=== PATIENT | male | born 1975 | race Two or more races ===

== ENCOUNTER 2025-06-25 17:40 | Emergency (ER) | payer MEDICAID, SELFPAY ==
[2025-06-25 17:42] VITALS: BP 176/79; PULSE 94; RESP 18; TEMP 37; O2SAT 96; BMI 28.1
[2025-06-25 17:47] VITALS: PULSE 101; O2SAT 99
--- NOTE | 2025-06-25 18:15 | EKG_ITS ---
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
--- NOTE | 2025-06-25 18:15 | XR_ITS ---
Examination: AP chest single view Technique: Sitting AP portable chest single view Date and time: June 25, 2025, 1849 hrs., Comparison November 23, 2023 Indications: Chest pain today Findings: Normal heart size. No pneumonia or pulmonary edema. The osseous structures are intact Impression: No pneumonia or pulmonary edema
[2025-06-25 18:43] LABS: Basophils # (Auto) 0.0 Thou/mm3 (0.0-0.2); Basophils % (Auto) 0 % (0-2.5); Eosinophils # (Auto) 0.2 Thou/mm3 (0.0-0.5); Eosinophils % (Auto) 2 % (0-10); Hematocrit 41.7 % (41.0-53.0); Hemoglobin 15.1 g/dL (13.5-16.0); Immature Granulocytes Auto 0.04 Thou/mm3 (0.00-0.00); Lymphocytes # (Auto) 2.1 Thou/mm3 (1.0-4.8); Lymphocytes % (Auto) 31 % (10-50); Mean Corpuscular HGB Conc 36.2 g/dl (31.0-37.0); Mean Corpuscular Hemoglobin 33.8 pg (25.0-35.0); Mean Corpuscular Volume 93 fL (80-100); Monocytes # (Auto) 0.6 Thou/mm3 (0.0-0.8); Monocytes % (Auto) 9 % (0-12); Neutrophils # (Auto) 3.9 Thou/mm3 (1.8-7.7); Neutrophils % (Auto) 57 % (37-80); Nucleated Red Blood Cell # 0.00 Thou/mm3 (0.00-0.00); Nucleated Red Blood Cell % 0 /100 WBC (0); Platelet Count 233 Thou/mm3 (140-440); RDW Standard Deviation 42.2 fL (35.1-43.9); Red Blood Count 4.47 Miln/mm3 (4.50-5.90); White Blood Count 6.9 Thou/mm3 (3.8-10.6)
[2025-06-25 19:03] LABS: B-Type Natriuretic Peptide 24 pg/mL (0-100)
[2025-06-25 19:04] LABS: Alanine Aminotransferase 85 U/L (10-49); Albumin, Serum 4.7 gm/dL (3.5-5.0); Albumin/Globulin Ratio 2.0 (1.2-2.2); Alkaline Phosphatase 139 U/L (46-116); Anion Gap 20 (7-16); Aspartate Amino Transferase 149 U/L (0-34); BUN/Creatinine Ratio 9 Ratio (12-20); Bilirubin,Total 1.3 mg/dL (0.3-1.2); Blood Urea Nitrogen 7 mg/dL (9-23); Calcium 9.9 mg/dL (8.3-10.6); Calcium (Corrected) 9.9 mg/dL (8.5-10.1); Carbon Dioxide 17.5 mMol/L (20.0-31.0); Chloride 101 mMol/L (98-107); Creatinine (Component) 0.8 mg/dL (0.6-1.3); Estimated Creatinine Clearance 115.3 mL/min (>60); Globulin 2.3 gm/dL (2.3-3.5); Glucose 128 mg/dL (74-106); Osmolality,Calculated 275 (275-295); Potassium 2.9 mMol/L (3.4-5.1); Sodium 138 mMol/L (136-145); Total Protein 7.0 gm/dL (5.7-8.2); Troponin I < 0.020 ng/mL (0.0-0.045); eGFR > 60 See Note
[2025-06-25] MEDS: POTASSIUM CHL 10 mEq IVPB 10 MEQ/100 ML BAG 100 MEQ IV ×2 (20:15→21:10)
[2025-06-25 22:06] VITALS: BP 160/84; PULSE 67; RESP 16; O2SAT 96
--- NOTE | 2025-06-25 22:11 | PD.EDCHEST ---
ED Chest Pain RME/HPI General Chief Complaint: General Adult/Misc Complain Stated Complaint: ANXIETY ATTACK TODAY, B/P HIGH Time Seen by Provider: 06/25/25 18:05 Arrival date/time: 06/25/25 17:40 This is a case of 49-year-old male with history of anxiety came in in the emergency room due to left anterior chest pain today with tingling sensation on the left arm no shortness of breath no palpitation patient states that her blood pressure at home was high patient denies any headache nausea vomiting dizziness numbness weakness tingling sensation no shortness of breath persistence of the symptoms this patient decided to sought consult here in the emergency room Limitations: no limitations Related Data Previous Rx's ?Medication ?Instructions ?Recorded ondansetron 4 mg disintegrating 4 mg PO Q8H PRN nausea and 03/09/24 tablet vomiting #14 tabs hydroxyzine HCl 25 mg tablet 25 mg PO BID PRN anxiety #10 tabs 06/25/25 potassium chloride 20 mEq 20 meq PO QDAY 3 days #3 tabs 06/25/25 tablet,extended release Allergies Allergy/AdvReac Type Severity Reaction Status Date / Time No Known Allergies Allergy Verified 06/25/25 17:50 Review of Systems Review of Systems Systems Reviewed: All systems reviewed, normal except as documented Constitutional Constitutional: Reports system reviewed and no additional complaints, except as documented, Reports as per HPI and Denies headache(s) ENT Ears, Nose, Mouth, and Throat: Denies dizziness, Denies headache(s) and Denies vertigo Cardiovascular Cardiovascular: Reports system reviewed and no additional complaints, except as documented, Reports as per HPI, Reports chest pain, Denies dyspnea and Denies rapid heart rate Respiratory Respiratory: Reports system reviewed and no additional complaints, except as documented, Reports as per HPI and Denies dyspnea Gastrointestinal Gastrointestinal: Reports system reviewed and no additional complaints, except as documented, Reports as per HPI, Denies nausea and Denies vomiting Musculoskeletal Musculoskeletal: Reports system reviewed and no additional complaints, except as documented, Reports as per HPI and Denies numbness Neurologic Neurologic: Reports system reviewed and no additional complaints, except as documented, Reports as per HPI, Denies dizziness, Denies headache(s), Denies numbness, Denies seizure-like activity, Denies sensory deficit and Denies vertigo Past Medical History Past Medical History CARDIAC: Positive Hypertension; Negative Congestive Heart Failure RESPIRATORY: Negative Chronic Obstructive Pulmonary Disease (COPD) GENITOURINARY: Negative Renal Disease ENDOCRINE: Negative Diabetes Mellitus Type 1 or Diabetes Mellitus Type 2 Social History SMOKING STATUS: Never smoker SUBSTANCE USE: methamphetamine (2 days ago) ED Exam General Limitations: Present no limitations General appearance: Present alert, in no apparent distress and other (Physical examination patient is awake alert oriented not in distress nontoxic looking well-hydrated well-nourished) Head Head exam: Present atraumatic, normocephalic and normal inspection Eye Eye exam: Present normal appearance, PERRL, EOMI and other (PERRL EOM intact normal contact, no papilledema no hyphema) ENT ENT exam: Present normal exam, normal oropharynx and mucous membranes moist Neck Neck exam: Present normal inspection, full ROM, trachea midline and other (Negative for meningeal sign); Absent tenderness, meningismus, lymphadenopathy or thyromegaly Chest Chest inspection: Present normal inspection and symmetric chest wall rise; Absent tenderness Respiratory Respiratory exam: Present normal lung sounds bilaterally; Absent respiratory distress, wheezes, stridor, accessory muscle use or prolonged expiratory phase Cardiovascular Cardiovascular exam: Present regular rate, normal rhythm and normal heart sounds; Absent bradycardia, tachycardia, irregular rhythm, systolic murmur or diastolic murmur Abdominal Exam Abdominal exam: Present soft and normal bowel sounds; Absent distention, tenderness, guarding, rebound, rigidity, diminished bowel sounds, hyperactive bowel sounds, hypoactive bowel sounds or organomegaly Extremities Exam Extremities exam: Present normal inspection and full ROM Back Exam Back exam: Present normal inspection and full ROM Neurological Exam Neurological exam: Present alert, oriented X3, CN II-XII intact, normal gait, reflexes normal and other (Awake alert oriented x 4 no focal deficit GCS 15/15 steady gait memory intact no slurring speech no facial droop CN II to XII is normal motor or sensory reflex are all normal in all extremities negative Babinski); Absent motor sensory deficit Psychiatric Psychiatric exam: Present normal affect, normal mood, anxious and other (No hallucination no paranoia no delusion); Absent depressed, agitated, flat affect, manic, homicidal ideation or suicidal ideation Skin Skin exam: Present warm, dry, intact and normal color Course Quality Measures none Orders Category Date Time Status EKG (ED ONLY) *Do not use* NOW Care 06/25/25 18:15 Completed EKG (ED Only) Stat Exams 06/25/25 18:15 Draft XR chest 1V portable Stat Exams 06/25/25 18:15 Completed BNP [B-Type Natriuretic Peptide] Stat Lab 06/25/25 18:27 Completed CBC Stat Lab 06/25/25 18:27 Completed CMP [Comprehensive Metabolic Panel] Stat Lab 06/25/25 18:27 Completed Troponin I Stat Lab 06/25/25 18:27 Completed LORazepam [Ativan] Med 06/25/25 18:15 Discontinued 1 mg PO X1 ONE POTASSIUM CHL 10 mEq IVPB [Kcl Ivpb] Med 06/25/25 19:12 Discontinued 10 meq in 100 ml IV Q1H Potassium Chloride [K-Dur] Med 06/25/25 19:11 Discontinued 40 meq PO X1 ONE Vital Signs Vital signs: Vital Signs Temperature 98.6 F 06/25/25 17:42 Pulse Rate 94 06/25/25 17:42 Respiratory Rate 18 06/25/25 17:42 Blood Pressure 176/79 H 06/25/25 17:42 Pulse Oximetry (%) 96 06/25/25 17:42 Oxygen Delivery Method Room Air 06/25/25 17:42 Patient oxygen saturation is 96% in room air Chest Pain MDM Narrative MDM Narrative:: This is a case of 49-year-old male with history of anxiety came in in the emergency room due to left anterior chest pain today with tingling sensation on the left arm no shortness of breath no palpitation patient states that her blood pressure at home was high patient denies any headache nausea vomiting dizziness numbness weakness tingling sensation no shortness of breath persistence of the symptoms this patient decided to sought consult here in the emergency room physical examination patient is awake alert oriented not in distress nontoxic looking well-hydrated well-nourished vital signs stable BP is noted to be 176/79 after giving Ativan BP was rechecked and noted to be 135/75 patient is not tachycardic heart rate is 94 not tachypneic not hypoxic oxygen saturation is normal in room air patient neurological exam is normal awake alert oriented x 4 no focal deficit GCS 15/15 steady gait no facial droop no slurring with speech memory intact motor or sensory reflex were all normal in all extremities CN II through XII is normal negative Babinski lungs sound is clear no crackles no rales no retraction no stridor heart normal rate regular rhythm no murmur the rest of the physical examination neurological exam is normal and unremarkable mental exam noted to be mildly anxious but no suicidal no homicidal ideation no hallucination no paranoia no delusion based on my physical examination patient chest pain is possible anxiety thus I gave Ativan patient blood test showed no leukocytosis no anemia kidney and liver function is normal patient sodium is normal patient potassium is 2.9 patient was given a K rider 20 mEq plus K-Dur 40 mEq oral patient urinalysis is normal patient troponin is negative patient EKG is sinus tach at 110 possibly due to anxiety no Q waves no ST elevation abnormality chest x-ray is also normal after 1 hour patient was reassessed patient seems to be calm not in distress nontoxic looking BP stable heart rate noted to be ranging to 95-99 normal patient will follow-up with PCP in 2 days for reevaluation and to be referred to field technician for chest pain for possible echocardiogram stress test and Holter monitor patient will follow-up with PCP to monitor the potassium level as an outpatient and repeat level in 2 days for reevaluation patient was prescribed with K-Dur 20 mEq only for 3 days until seen by PCP patient was also given hydroxyzine for anxiety patient needs to be referred to psychiatry and psychologist for anxiety for any recurrence persistent worsening symptoms return precaution to the ER is advised Patient was discharged with comfortable condition walking with stable gait. Patient verbalized no further complains explained diagnosis and answered patient question. Patient is comfortable with the proposed management plan including the need to follow up with his/her primary care physician and any specialist if applicable Discussed patient for any urgent condition or worsening sx, He/She needed to go to emergency room immediately or call 911. Patient acknowledge the responsibility to follow up as instructed and to monitor her/his symptoms. For any persistence of the symptoms for more than 3-5 days return precaution advised. Discussed the result of the test and was given printed discharge instruction Patient data External records reviewed:: [facility] previous records Clinical information provided by:: patient Social determinants that could affect healthcare access:: none Patient has the following chronic illnesses:: None How is presenting disease/condition affected by chronic disease/condition?: no chronic disease Evaluation data The following diagnostics were reviewed and interpreted by me:: lab results, radiology exam(s) and EKG tracing(s) Lab and/or radiology exams considered but not ordered:: Reviewed Interpretation Summary: Reviewed Medications / Prescriptions Medications or Prescriptions considered but not ordered:: Given Medication administrations:: Medication Administration History Discontinued Medications Potassium Chloride (Kcl Ivpb) 10 meq in 100 mls @ 100 mls/hr IV Q1H JIM Stop: 06/25/25 21:11 Last Admin: 06/25/25 21:10 Dose: 100 mls/hr Documented By: Infusion: 06/25/25 21:10 Dose: Infused Documented By: Admin: 06/25/25 20:15 Dose: 100 mls/hr Documented By: TEE Lorazepam (Lorazepam 0.5 Mg Tablet) 1 mg PO X1 ONE Stop: 06/25/25 18:16 Last Admin: 06/25/25 19:24 Dose: 1 mg Documented By: SHIRA Potassium Chloride (Potassium Chloride 20 Meq Tabcr) 40 meq PO X1 ONE Stop: 06/25/25 19:12 Last Admin: 06/25/25 19:41 Dose: 40 meq Documented By: TEE Given Consultations Consultation(s) initiated? (list below): No Diagnosis Chest Pain Differential Diagnosis: atypical chest pain, costochondritis and chest pain Most likely diagnosis given after review of the tests above:: Chest pain of unknown etiology anxiety Admission Indicated Admission indicated?: not indicated Explain why admission is indicated or not indicated:: Not indicated Admission Request Was there a request for admission?: No Admission Attestation Admission request attestation: Not indicated Disposition Plan Disposition Plan: Discharge Discharge Attestation Discharge Attestation: The patient and all family members were given an opportunity to ask questions and understood the discharge instructions. Discharge instructions specifically effects, indications for sooner follow up or return to the emergency department, and the expected course of current diagnosis. Patient condition: Stable Discharge Plan Plan Patient Disposition: HOME (Self Care) Patient condition on transfer: Stable Prescriptions/Referrals Prescriptions/Med Rec: New hydroxyzine HCl 25 mg tablet 25 mg PO BID PRN (Reason: anxiety) Qty: 10 0RF potassium chloride 20 mEq tablet extended release 20 meq PO QDAY 3 Days Qty: 3 0RF No Action ondansetron 4 mg tablet,disintegrating 4 mg PO Q8H PRN (Reason: nausea and vomiting) Qty: 14 0RF Referrals: No Primary/Family,Physician [Primary Care Provider] - In 1 week Problem List Clinical Impression: Chest pain of unknown etiology, Anxiety, Hypokalemia Patient/Caregiver Discharge Instructions Education Materials: ED Anxiety Reaction, ED Chest Pain, Uncertain Cause, ED Hypokalemia Additional Instructions: Follow-up with your primary care physician in 2 days for reevaluation and to be referred to field technician for further evaluation and treatment of chest pain for possible echocardiogram stress test and Holter monitor it is also important to see a psychiatrist psychologist for your anxiety you also need to follow-up with your primary care physician to monitor your potassium level as an outpatient and to repeat the level in 2 days worsening symptoms recurrence persistent or any emergent concern call 911 or go to the nearest emergency room take your medication as directed keep hydrated Print Language: Czech Stand Alone Forms: Sara Award Info., Patient Portal Info Letter PA/BLOW MACHINE TENDER STARCH SPRAYING Supervising Physician PA/AXEL Supervising Physician: dr janelle shaikh
[2025-06-25 22:37] VITALS: BP 151/86; PULSE 65; RESP 16; O2SAT 98
== END 2025-06-25 22:54 | disposition home or self-care (01) ==
PROVIDERS: Nurse Practitioner Family; Emergency Provider Emergency Medicine
DX: R07.89 Other chest pain (principal); F41.9 Anxiety disorder, unspecified; E87.6 Hypokalemia; R00.0 Tachycardia, unspecified; R94.31 Abnormal electrocardiogram [ECG] [EKG]; I10 Essential (primary) hypertension
CPT/HCPCS: 36415; 71045; 80053; 83880; 84132; 84484; 85025; 93005; 99283; J3480; A9270

== ENCOUNTER 2025-06-28 07:00 | Emergency (ER) | payer MEDICAID, SELFPAY ==
[2025-06-28 07:00] VITALS: BMI 29.0
[2025-06-28 07:09] VITALS: BP 163/90; PULSE 78; RESP 19; TEMP 37.1; O2SAT 98
--- NOTE | 2025-06-28 07:17 | XR_ITS ---
Examination: PA lateral chest 2 views Technique: Upright PA lateral chest 2 views Date and time: June 28, 2025, 0729 hrs., Comparison June 25, 2025 Indications: Chest pain chest pressure and weakness today Findings: Normal heart size. Lungs are clear. The osseous structures are intact. Impression: No active disease.
--- NOTE | 2025-06-28 07:17 | EKG_ITS ---
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
[2025-06-28 07:54] LABS: Collection Type, Urine Clean Catch
[2025-06-28 08:12] LABS: Amphetamine/Methamp Scrn,U Negative (Negative); Barbiturate Screen,Urine Negative (Negative); Benzodiazepines Screen,Urine Negative (Negative); Benzoylecgonine Screen, Ur Positive (Negative); Fentanyl Screen,Urine Negative (Negative); Opiate Screen,Urine Negative (Negative); THC Screen,Urine Negative (Negative)
[2025-06-28 08:26] LABS: Bilirubin,Urine Negative (Negative); Blood,Urine Negative (Negative); Clarity,Urine Clear (Clear/Hazy); Color,Urine Yellow (Lt Yel-Yel); Culture Indicated,Urine Not Indicated; Glucose, Urine Negative (Negative); Ketones,Urine Negative (Negative); Leukocyte Esterase,Urine Negative (Negative); Nitrite,Urine Negative (Negative); PH,Urine 6.5 (5.0-7.0); Protein,Urine Trace (Neg - Trace); RBC,Urine 6 /hpf (0-3); Specific Gravity,Urine 1.031 (1.001-1.035); Squamous Epithelial Cell,Urine < 1 /hpf (0-5); Urobilinogen,Urine 12 mg/dL (0.0-1.0); WBC,Urine 2 /hpf (0-5)
[2025-06-28 08:27] LABS: Basophils # (Auto) 0.0 Thou/mm3 (0.0-0.2); Basophils % (Auto) 0 % (0-2.5); Eosinophils # (Auto) 0.0 Thou/mm3 (0.0-0.5); Eosinophils % (Auto) 0 % (0-10); Hematocrit 40.1 % (41.0-53.0); Hemoglobin 13.8 g/dL (13.5-16.0); Immature Granulocytes Auto 0.00 Thou/mm3 (0.00-0.00); Lymphocytes # (Auto) 0.5 Thou/mm3 (1.0-4.8); Lymphocytes % (Auto) 11 % (10-50); Mean Corpuscular HGB Conc 34.4 g/dl (31.0-37.0); Mean Corpuscular Hemoglobin 33.1 pg (25.0-35.0); Mean Corpuscular Volume 96 fL (80-100); Monocytes # (Auto) 0.4 Thou/mm3 (0.0-0.8); Monocytes % (Auto) 8 % (0-12); Neutrophils # (Auto) 3.8 Thou/mm3 (1.8-7.7); Neutrophils % (Auto) 81 % (37-80); Nucleated Red Blood Cell # 0.00 Thou/mm3 (0.00-0.00); Nucleated Red Blood Cell % 0 /100 WBC (0); Platelet Count 155 Thou/mm3 (140-440); RDW Standard Deviation 44.1 fL (35.1-43.9); Red Blood Count 4.17 Miln/mm3 (4.50-5.90); White Blood Count 4.8 Thou/mm3 (3.8-10.6)
[2025-06-28 08:41] LABS: Sperm,Urine Present
[2025-06-28 08:42] LABS: D-Dimer < 250 ng/mL (<600)
[2025-06-28 08:49] LABS: Alanine Aminotransferase 72 U/L (10-49); Albumin, Serum 4.2 gm/dL (3.5-5.0); Albumin/Globulin Ratio 1.9 (1.2-2.2); Alkaline Phosphatase 108 U/L (46-116); Anion Gap 8 (7-16); Aspartate Amino Transferase 119 U/L (0-34); BUN/Creatinine Ratio 10 Ratio (12-20); Bilirubin,Total 1.0 mg/dL (0.3-1.2); Blood Urea Nitrogen 8 mg/dL (9-23); Calcium 9.2 mg/dL (8.3-10.6); Calcium (Corrected) 9.2 mg/dL (8.5-10.1); Carbon Dioxide 26.1 mMol/L (20.0-31.0); Chloride 107 mMol/L (98-107); Creatinine (Component) 0.8 mg/dL (0.6-1.3); Estimated Creatinine Clearance 109.6 mL/min (>60); Globulin 2.2 gm/dL (2.3-3.5); Glucose 107 mg/dL (74-106); Magnesium 1.7 mg/dL (1.6-2.6); Osmolality,Calculated 279 (275-295); Potassium 4.1 mMol/L (3.4-5.1); Sodium 141 mMol/L (136-145); Total Protein 6.4 gm/dL (5.7-8.2); Troponin I < 0.002 ng/mL (0.0-0.045); eGFR > 60 See Note
[2025-06-28 08:55] LABS: B-Type Natriuretic Peptide 42 pg/mL (0-100)
--- NOTE | 2025-06-28 09:14 | EDNOTE_ITS ---
ED General RME/HPI General Chief complaint: General Adult/Misc Complain Stated complaint: REACTION TO MEDICATION Time Seen by Provider: 06/28/25 08:18 Arrival date/time: 06/28/25 07:00 49-year-old male with history of anxiety and cocaine abuse presents to the emergency department today stating that he believes he is having anxiety reaction/reaction to medication Limitations: no limitations Related Data Previous Rx's ?Medication ?Instructions ?Recorded ondansetron 4 mg disintegrating 4 mg PO Q8H PRN nausea and 03/09/24 tablet vomiting #14 tabs hydroxyzine HCl 25 mg tablet 25 mg PO BID PRN anxiety #10 tabs 06/25/25 hydrochlorothiazide 12.5 mg capsule 12.5 mg PO QAM #30 caps 07/01/25 Allergies Allergy/AdvReac Type Severity Reaction Status Date / Time No Known Allergies Allergy Verified 07/03/25 05:41 Review of Systems Review of Systems Systems Reviewed: All systems reviewed, normal except as documented Constitutional Constitutional: Reports system reviewed and no additional complaints, except as documented, Denies fever(s) and Denies headache(s) Eyes Eyes: Reports system reviewed and no additional complaints, except as documented and Denies blurry vision ENT Ears, Nose, Mouth, and Throat: Reports system reviewed and no additional complaints, except as documented, Denies headache(s), Denies nasal congestion and Denies nasal discharge Cardiovascular Cardiovascular: Reports system reviewed and no additional complaints, except as documented, Denies chest pain and Denies dyspnea Respiratory Respiratory: Reports system reviewed and no additional complaints, except as documented, Denies chest congestion, Denies cough and Denies dyspnea Gastrointestinal Gastrointestinal: Reports system reviewed and no additional complaints, except as documented and Denies abdominal pain Integumentary/Breasts Skin/Breast: Reports system reviewed and no additional complaints, except as documented and Denies rash Neurologic Neurologic: Reports system reviewed and no additional complaints, except as documented, Reports as per HPI and Denies headache(s) Psychiatric Psychiatric: Reports system reviewed and no additional complaints, except as documented and Reports anxiety Past Medical History Past Medical History CARDIAC: Positive Hypertension; Negative Congestive Heart Failure RESPIRATORY: Negative Chronic Obstructive Pulmonary Disease (COPD) GENITOURINARY: Negative Renal Disease ENDOCRINE: Negative Diabetes Mellitus Type 1 or Diabetes Mellitus Type 2 PSYCHO/SOCIAL: Positive Anxiety Social History SMOKING STATUS: Never smoker SUBSTANCE USE: methamphetamine (2 days ago) ED Exam General Limitations: Present no limitations General appearance: Present alert and in no apparent distress Head Head exam: Present atraumatic, normocephalic and normal inspection Eye Eye exam: Present normal appearance, PERRL and EOMI; Absent conjunctival injection ENT ENT exam: Present normal exam, normal oropharynx and mucous membranes moist Neck Neck exam: Present normal inspection, full ROM and trachea midline Chest Chest inspection: Present normal inspection and symmetric chest wall rise Respiratory Respiratory exam: Present normal lung sounds bilaterally; Absent respiratory distress Cardiovascular Cardiovascular exam: Present regular rate, normal rhythm and normal heart sounds; Absent bradycardia or irregular rhythm Abdominal Exam Abdominal exam: Present soft and normal bowel sounds; Absent distention, tenderness, guarding, rebound or rigidity Extremities Exam Extremities exam: Present normal inspection and full ROM Back Exam Back exam: Present normal inspection and full ROM Neurological Exam Neurological exam: Present alert, oriented X3 and CN II-XII intact Psychiatric Psychiatric exam: Present normal affect and normal mood Skin Skin exam: Present warm, dry, intact and normal color Course Quality Measures none Orders Category Date Time Status EKG (ED ONLY) *Do not use* NOW Care 06/28/25 07:17 Completed EKG (ED Only) Stat Exams 06/28/25 07:17 Draft XR chest 2V Stat Exams 06/28/25 07:17 Completed B-Type Natriuretic Peptide Stat Lab 06/28/25 08:00 Completed CBC Stat Lab 06/28/25 08:00 Completed Comprehensive Metabolic Panel Stat Lab 06/28/25 08:00 Completed D-Dimer Stat Lab 06/28/25 08:00 Completed Drug Screen,Urine Stat Lab 06/28/25 07:38 Completed Magnesium Stat Lab 06/28/25 08:00 Completed Troponin I Stat Lab 06/28/25 08:00 Completed Urinalysis, C/S if Indicated Stat Lab 06/28/25 07:38 Completed ALPRazoLAM [Xanax] Med 06/28/25 07:17 Discontinued 0.25 mg PO X1 ONE Vital Signs Vital signs: Vital Signs Temperature 98.8 F 06/28/25 07:09 Pulse Rate 78 06/28/25 07:09 Respiratory Rate 19 06/28/25 07:09 Blood Pressure 163/90 H 06/28/25 07:09 Pulse Oximetry (%) 98 06/28/25 07:09 Oxygen Delivery Method Room Air 06/28/25 07:09 O2 saturation 98% room air within normal limits PROCEDURES: EKG Interpretation #1: Date of EK06/28/25 Time of EK:20 Rate: 71 Interpretation: Interpreted by me EKG Impression: Normal sinus rhythm, No acute ST-T changes, No ectopy, No ischemic changes, Normal QRS, Normal intervals and Normal axis Discharge Plan Plan Patient Disposition: HOME (Self Care) Discharge Disposition comment: Stable Prescriptions/Referrals Prescriptions/Med Rec: No Action ondansetron 4 mg tablet,disintegrating 4 mg PO Q8H PRN (Reason: nausea and vomiting) Qty: 14 0RF hydroxyzine HCl 25 mg tablet 25 mg PO BID PRN (Reason: anxiety) Qty: 10 0RF hydrochlorothiazide 12.5 mg capsule 12.5 mg PO QAM Qty: 30 0RF Referrals: No Primary/Family,Physician [Primary Care Provider] - 06/29/25 Problem List Clinical Impression: Anxiety Patient/Caregiver Discharge Instructions Education Materials: ED Anxiety Reaction Additional Instructions: Please follow up with your primary care doctor in the next 24-48hrs for any worsening symptoms return here immediately Print Language: Kyrgyz Stand Alone Forms: Sara Award Info., Patient Portal Info Letter PA/BURIAL VAULT DELIVERER AND INSTALLER Supervising Physician PA/BURIAL VAULT DELIVERER AND INSTALLER Supervising Physician: Dr. terrazas MDM Narrative MDM hospital course (for use when minimal MDM required): 49-year-old male with history of anxiety and cocaine abuse presents to the emergency department today stating that he believes he is having anxiety reaction/reaction to medication On exam patient appears quite nervous Lab work, EKG, imaging obtained no acute emergent findings noted Patient did test positive for cocaine Patient give medication for anxiety discharged home Clinical Information Provided by: patient Medical Records reviewed [facility] Meds/Rx considered, not ordered describe: Given Labs/Rad/Tests considered, not ordered Describe: Reviewed Chronic Illness/Social Conditions which may negatively complicate care or outcome(s)-explain: None or not applicab le Labs Labs: interpreted by me Lab(s) Interpretation(s): Rule out me Imaging Imaging interpretation: interpreted by me Imaging Interpretation(s): Ordered Medication Administration(s) Medication Administration History Discontinued Medications Alprazolam (Alprazolam 0.25 Mg Tablet) 0.25 mg PO X1 ONE Stop: 06/28/25 07:18 Last Admin: 06/28/25 07:36 Dose: 0.25 mg Documented By: LEROY Given Diagnosis Differential Diagnosis ED Complaint MDM: Anxiety, depression, stress, drug abuse
== END 2025-06-28 09:46 | disposition home or self-care (01) ==
PROVIDERS: Nurse Practitioner Primary Care; Emergency Provider Family Medicine
DX: F41.1 Generalized anxiety disorder (principal); R07.89 Other chest pain; R53.1 Weakness; R94.31 Abnormal electrocardiogram [ECG] [EKG]; I10 Essential (primary) hypertension
CPT/HCPCS: 36415; 71046; 80053; 80307; 81001; 83735; 83880; 84484; 85025; 85379; 93005; 99283; A9270

== ENCOUNTER 2025-07-01 12:09 | Emergency (ER) | payer MEDICAID, SELFPAY ==
[2025-07-01 12:10] VITALS: BMI 27.3
[2025-07-01 12:17] VITALS: BP 159/96; PULSE 97; RESP 18; TEMP 37; O2SAT 97
--- NOTE | 2025-07-01 12:20 | EDRME_ITS ---
Rapid Medical Screening Exam RME Arrival date/time: 07/01/25 12:09 Chief Complaint: Anxiety Vital signs: Vital Signs Temperature 98.6 F 07/01/25 12:17 Pulse Rate 97 07/01/25 12:17 Respiratory Rate 18 07/01/25 12:17 Blood Pressure 159/96 H 07/01/25 12:17 Pulse Oximetry (%) 97 07/01/25 12:17 Oxygen Delivery Method Room Air 07/01/25 12:17 RME Narrative: Patient c/o bilateral hand numbness and anxiety. This is patient's third visit this week for anxiety attack. No anxiolytics taken relief captain.
--- NOTE | 2025-07-01 12:22 | EKG_ITS ---
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
[2025-07-01 13:05] LABS: Basophils # (Auto) 0.0 Thou/mm3 (0.0-0.2); Basophils % (Auto) 0 % (0-2.5); Eosinophils # (Auto) 0.0 Thou/mm3 (0.0-0.5); Eosinophils % (Auto) 0 % (0-10); Hematocrit 45.7 % (41.0-53.0); Hemoglobin 15.7 g/dL (13.5-16.0); Immature Granulocytes Auto 0.03 Thou/mm3 (0.00-0.00); Lymphocytes # (Auto) 1.6 Thou/mm3 (1.0-4.8); Lymphocytes % (Auto) 26 % (10-50); Mean Corpuscular HGB Conc 34.4 g/dl (31.0-37.0); Mean Corpuscular Hemoglobin 32.4 pg (25.0-35.0); Mean Corpuscular Volume 94 fL (80-100); Monocytes # (Auto) 0.4 Thou/mm3 (0.0-0.8); Monocytes % (Auto) 7 % (0-12); Neutrophils # (Auto) 4.0 Thou/mm3 (1.8-7.7); Neutrophils % (Auto) 66 % (37-80); Nucleated Red Blood Cell # 0.00 Thou/mm3 (0.00-0.00); Nucleated Red Blood Cell % 0 /100 WBC (0); Platelet Count 192 Thou/mm3 (140-440); RDW Standard Deviation 42.5 fL (35.1-43.9); Red Blood Count 4.85 Miln/mm3 (4.50-5.90); White Blood Count 6.1 Thou/mm3 (3.8-10.6)
[2025-07-01 13:20] LABS: Alanine Aminotransferase 70 U/L (10-49); Albumin, Serum 5.0 gm/dL (3.5-5.0); Albumin/Globulin Ratio 1.9 (1.2-2.2); Alcohol, Blood Medical < 3.0 mg/dL (0-10.0); Alkaline Phosphatase 97 U/L (46-116); Anion Gap 13 (7-16); Aspartate Amino Transferase 70 U/L (0-34); BUN/Creatinine Ratio 10 Ratio (12-20); Bilirubin,Total 1.2 mg/dL (0.3-1.2); Blood Urea Nitrogen 8 mg/dL (9-23); Calcium 10.2 mg/dL (8.3-10.6); Calcium (Corrected) 10.2 mg/dL (8.5-10.1); Carbon Dioxide 22.9 mMol/L (20.0-31.0); Chloride 103 mMol/L (98-107); Creatinine (Component) 0.8 mg/dL (0.6-1.3); Estimated Creatinine Clearance 105.7 mL/min (>60); Globulin 2.6 gm/dL (2.3-3.5); Glucose 114 mg/dL (74-106); Osmolality,Calculated 276 (275-295); Potassium 3.8 mMol/L (3.4-5.1); Sodium 139 mMol/L (136-145); Total Protein 7.6 gm/dL (5.7-8.2); eGFR > 60 See Note
--- NOTE | 2025-07-01 13:37 | EDNOTE_ITS ---
ED General RME/HPI General Chief complaint: Anxiety Stated complaint: ANXIETY ATTACKED TODAY Time Seen by Provider: 07/01/25 12:36 Arrival date/time: 07/01/25 12:09 CC: No woke up this morning with a high blood pressure patient does not see any regular doctor, has no medications other than hydroxyzine for anxiety. at bedside states the patient has been anxious for the past morning. Patient denies nausea vomiting chest pain shortness of breath or difficulty breathing. At the time of the exam all the symptoms had resolved. RME / HPI RME / HPI narrative: Patient c/o bilateral hand numbness and anxiety. This is patient's third visit this week for anxiety attack. 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 Related Data Previous Rx's ?Medication ?Instructions ?Recorded ondansetron 4 mg disintegrating 4 mg PO Q8H PRN nausea and 03/09/24 tablet vomiting #14 tabs hydroxyzine HCl 25 mg tablet 25 mg PO BID PRN anxiety #10 tabs 06/25/25 hydrochlorothiazide 12.5 mg capsule 12.5 mg PO QAM #30 caps 07/01/25 Allergies Allergy/AdvReac Type Severity Reaction Status Date / Time No Known Allergies Allergy Verified 06/25/25 17:50 Review of Systems Review of Systems Narrative Review of Systems: GEN: No fever, no chills, no weight loss EYES: No discharge, no visual changes, no pain HEENT: No ear pain, no congestion, no sore throat PULM: No shortness of breath, no cough, no congestion CV: No chest pain, no dyspnea on exertion, no palpitations GI: No nausea, no vomiting, no diarrhea, no pain, no constipation : No frequency, no urgency, no dysuria MUSC/SKEL: No joint pain, no back pain SKIN: No rash PSYCH: No hallucinations, no depression HEME/LYMPH: No easy bleeding or bruising tendencies NEURO: No weakness, no headache Past Medical History Past Medical History CARDIAC: Positive Hypertension; Negative Congestive Heart Failure RESPIRATORY: Negative Chronic Obstructive Pulmonary Disease (COPD) GENITOURINARY: Negative Renal Disease ENDOCRINE: Negative Diabetes Mellitus Type 1 or Diabetes Mellitus Type 2 Social History SMOKING STATUS: Never smoker SUBSTANCE USE: methamphetamine (2 days ago) ED Exam Narrative Physical exam: [General: Anxious but not in any acute distress Head normocephalic HEENT: Eyes pupils are PERRLA EOMs are intact mouth pink moist membranes uvula is midline swallow symmetrical phonation is normal all the subsystems of HEENT are within acceptable limits Neck is supple nontender Chest equal chest rise nontender to palpation Respiratory: Clear to auscultation no wheezes crackles or rubs CV: Rate rhythm is regular no murmurs rubs or clicks Abdomen is soft nontender no masses positive bowel sounds all 4 quadrants Back: No CVA tenderness no spinous process tenderness from cervical spine thoracic and lumbar spine Skin: Intact no petechiae rash induration ulceration or crepitus Extremities: Moving all extremity against resistance cap refill less than 2 seconds neurosensory intact Neuro: Awake alert oriented x3 Glascow coma 15 no focal deficits] Course Quality Measures none Orders Category Date Time Status EKG (ED ONLY) *Do not use* NOW Care 07/01/25 12:22 Completed EKG (ED Only) Stat Exams 07/01/25 12:22 Draft Alcohol, Blood Medical Stat Lab 07/01/25 12:37 Completed CBC Stat Lab 07/01/25 12:37 Completed CMP [Comprehensive Metabolic Panel] Stat Lab 07/01/25 12:37 Completed Drug Screen,Urine Stat Lab 07/01/25 12:22 Ordered UA [Urinalysis] Stat Lab 07/01/25 12:21 Ordered LORazepam [Ativan] Med 07/01/25 12:21 Discontinued 2 mg PO X1 ONE Vital Signs Vital signs: Vital Signs Temperature 98.6 F 07/01/25 12:17 Pulse Rate 97 07/01/25 12:17 Respiratory Rate 18 07/01/25 12:17 Blood Pressure 159/96 H 07/01/25 12:17 Pulse Oximetry (%) 97 07/01/25 12:17 Oxygen Delivery Method Room Air 07/01/25 12:17 Discharge Plan Plan Patient Disposition: HOME (Self Care) Patient condition on transfer: Stable Prescriptions/Referrals Prescriptions/Med Rec: New hydrochlorothiazide 12.5 mg capsule 12.5 mg PO QAM Qty: 30 0RF No Action ondansetron 4 mg tablet,disintegrating 4 mg PO Q8H PRN (Reason: nausea and vomiting) Qty: 14 0RF hydroxyzine HCl 25 mg tablet 25 mg PO BID PRN (Reason: anxiety) Qty: 10 0RF Referrals: Devin Smith MD [Primary Care Provider, Family Practice] - In 1 week Problem List Clinical Impression: Anxiety, Hypertension Patient/Caregiver Discharge Instructions Education Materials: ED Anxiety Reaction, ED High Blood Pressure ... Additional Instructions: Take the medication as prescribed follow-up with your primary care doctor. If there is a worsening of symptoms return the emergency room for reevaluation otherwise follow-up with your primary care doctor listed above. Print Language: Swedish Stand Alone Forms: Sara Award Info., Patient Portal Info Letter PA/AXEL Supervising Physician KIM/AXEL Supervising Physician: Omar Starr ENP MDM Clinical Information Provided by: patient Medical Records reviewed [facility] Meds/Rx considered, not ordered None Labs/Rad/Tests considered, not ordered None Chronic Illness/Social Conditions which may negatively complicate care or outcome(s)-explain: None or not applicable Labs Labs: interpreted by me Lab(s) Interpretation(s): CBC shows no acute leukocytosis anemia thrombocytopenia CMP shows no significant electrolyte imbalances other than a glucose of 114. T here is mild transaminitis at AST of 70 ALT of 70 alk phos within acceptable limits T. bili at 1.2. Alcohol level is negative Imaging Imaging Interpretation(s): EKG performed at 1223 shows a ventricular rate of 83 WV interval 151 QRS of 93 QTc of 405 this is sinus rhythm. Medication Administration(s) Medication Administration History Discontinued Medications Lorazepam (Lorazepam 0.5 Mg Tablet) 2 mg PO X1 ONE Stop: 07/01/25 12:22 Last Admin: 07/01/25 12:30 Dose: 2 mg Documented By: Diagnosis Differential Diagnosis ED Complaint MDM: Anxiety ACS IN pneumonia
== END 2025-07-01 14:16 | disposition home or self-care (01) ==
PROVIDERS: Physician Assistant; Emergency Provider Emergency Medicine; PCP Family Medicine
DX: F41.0 Panic disorder [episodic paroxysmal anxiety] (principal); I10 Essential (primary) hypertension; R94.31 Abnormal electrocardiogram [ECG] [EKG]
CPT/HCPCS: 36415; 80053; 80307; 80320; 81001; 85025; 93005; 99283; A9270; G0480

== ENCOUNTER 2025-07-03 05:35 | Observation (INO) | payer MEDICAID, SELFPAY ==
[2025-07-03 05:47] VITALS: BP 158/83; PULSE 109; RESP 20; TEMP 36.7; O2SAT 100
--- NOTE | 2025-07-03 06:20 | XR_ITS ---
Examination: PA lateral chest 2 views Technique: Upright PA lateral chest 2 views Date and time: July 03, 2025, 0642 hrs., Comparison 06/28/2025 Indications: Chest pain shortness of breath today. Findings: Normal heart size Lungs are clear. The osseous structures are intact. There is accentuation of the basilar bronchovascular markings Impression: Mild basilar bronchitis pattern
[2025-07-03 06:44] LABS: Basophils # (Auto) 0.0 Thou/mm3 (0.0-0.2); Basophils % (Auto) 0 % (0-2.5); Eosinophils # (Auto) 0.0 Thou/mm3 (0.0-0.5); Eosinophils % (Auto) 0 % (0-10); Hematocrit 42.8 % (41.0-53.0); Hemoglobin 14.8 g/dL (13.5-16.0); Immature Granulocytes Auto 0.01 Thou/mm3 (0.00-0.00); Lymphocytes # (Auto) 1.2 Thou/mm3 (1.0-4.8); Lymphocytes % (Auto) 26 % (10-50); Mean Corpuscular HGB Conc 34.6 g/dl (31.0-37.0); Mean Corpuscular Hemoglobin 32.6 pg (25.0-35.0); Mean Corpuscular Volume 94 fL (80-100); Monocytes # (Auto) 0.3 Thou/mm3 (0.0-0.8); Monocytes % (Auto) 7 % (0-12); Neutrophils # (Auto) 3.0 Thou/mm3 (1.8-7.7); Neutrophils % (Auto) 67 % (37-80); Nucleated Red Blood Cell # 0.00 Thou/mm3 (0.00-0.00); Nucleated Red Blood Cell % 0 /100 WBC (0); Platelet Count 165 Thou/mm3 (140-440); RDW Standard Deviation 43.0 fL (35.1-43.9); Red Blood Count 4.54 Miln/mm3 (4.50-5.90); White Blood Count 4.4 Thou/mm3 (3.8-10.6)
[2025-07-03 07:16] LABS: B-Type Natriuretic Peptide 31 pg/mL (0-100)
[2025-07-03 07:19] LABS: Alanine Aminotransferase 53 U/L (10-49); Albumin, Serum 4.6 gm/dL (3.5-5.0); Albumin/Globulin Ratio 2.0 (1.2-2.2); Alkaline Phosphatase 83 U/L (46-116); Anion Gap 12 (7-16); Aspartate Amino Transferase 60 U/L (0-34); BUN/Creatinine Ratio 13 Ratio (12-20); Bilirubin,Total 1.1 mg/dL (0.3-1.2); Blood Urea Nitrogen 10 mg/dL (9-23); Calcium 10.2 mg/dL (8.3-10.6); Calcium (Corrected) 10.2 mg/dL (8.5-10.1); Carbon Dioxide 25.3 mMol/L (20.0-31.0); Chloride 103 mMol/L (98-107); Creatinine (Component) 0.8 mg/dL (0.6-1.3); Globulin 2.3 gm/dL (2.3-3.5); Glucose 137 mg/dL (74-106); Osmolality,Calculated 280 (275-295); Potassium 3.8 mMol/L (3.4-5.1); Sodium 140 mMol/L (136-145); Total Protein 6.9 gm/dL (5.7-8.2); Troponin I < 0.002 ng/mL (0.0-0.045); eGFR > 60 See Note
[2025-07-03 07:24] LABS: Collection Type, Urine Clean Catch
[2025-07-03 07:37] LABS: Amphetamine/Methamp Scrn,U Negative (Negative); Barbiturate Screen,Urine Negative (Negative); Benzodiazepines Screen,Urine Negative (Negative); Benzoylecgonine Screen, Ur Negative (Negative); Bilirubin,Urine Negative (Negative); Blood,Urine Negative (Negative); Clarity,Urine Clear (Clear/Hazy); Color,Urine Yellow (Lt Yel-Yel); Culture Indicated,Urine Not Indicated; Fentanyl Screen,Urine Negative (Negative); Glucose, Urine Negative (Negative); Ketones,Urine Negative (Negative); Leukocyte Esterase,Urine Negative (Negative); Nitrite,Urine Negative (Negative); Opiate Screen,Urine Negative (Negative); PH,Urine 7.5 (5.0-7.0); Protein,Urine Trace (Neg - Trace); RBC,Urine 4 /hpf (0-3); Specific Gravity,Urine 1.020 (1.001-1.035); Squamous Epithelial Cell,Urine < 1 /hpf (0-5); THC Screen,Urine Negative (Negative); Urobilinogen,Urine Negative mg/dL (0.0-1.0); WBC,Urine 2 /hpf (0-5)
--- NOTE | 2025-07-03 08:19 | PD.EDCHEST ---
ED Chest Pain RME/HPI General Chief Complaint: General Adult/Misc Complain Stated Complaint: NOT FEELING GOOD Time Seen by Provider: 07/03/25 06:20 Source: patient Arrival date/time: 07/03/25 05:35 49-year-old male with a history of anxiety and hypertension presents to the emergency room with a chief complaint of chest pain, palpitations, not feeling good x 1 week Mode of arrival: ambulatory Limitations: no limitations Related Data Previous Rx's ?Medication ?Instructions ?Recorded ondansetron 4 mg disintegrating 4 mg PO Q8H PRN nausea and 03/09/24 tablet vomiting #14 tabs hydroxyzine HCl 25 mg tablet 25 mg PO BID PRN anxiety #10 tabs 06/25/25 hydrochlorothiazide 12.5 mg capsule 12.5 mg PO QAM #30 caps 07/01/25 Allergies Allergy/AdvReac Type Severity Reaction Status Date / Time No Known Allergies Allergy Verified 07/03/25 05:41 Review of Systems Review of Systems Systems Reviewed: All systems reviewed, normal except as documented Constitutional Constitutional: Reports system reviewed and no additional complaints, except as documented, Denies fatigue, Denies fever(s), Denies headache(s) and Denies weakness Eyes Eyes: Reports system reviewed and no additional complaints, except as documented, Denies blurry vision and Denies change in vision ENT Ears, Nose, Mouth, and Throat: Reports system reviewed and no additional complaints, except as documented, Denies otalgia, Denies headache(s), Denies nasal congestion, Denies throat swelling and Denies vertigo Cardiovascular Cardiovascular: Reports system reviewed and no additional complaints, except as documented, Reports chest pain, Reports dyspnea and Denies dyspnea on exertion Respiratory Respiratory: Reports system reviewed and no additional complaints, except as documented, Denies chest congestion, Denies cough, Reports dyspnea, Denies dyspnea on exertion and Denies wheezing Gastrointestinal Gastrointestinal: Reports system reviewed and no additional complaints, except as documented, Denies abdominal pain, Denies cramping, Denies nausea and Denies vomiting Genitourinary Genitourinary: Reports system reviewed and no additional complaints, except as documented, Denies dysuria and Denies hematuria Musculoskeletal Musculoskeletal: Reports system reviewed and no additional complaints, except as documented and Denies back pain Integumentary/Breasts Skin/Breast: Reports system reviewed and no additional complaints, except as documented and Denies wounds Neurologic Neurologic: Reports system reviewed and no additional complaints, except as documented, Denies confusion, Denies headache(s), Denies lack of coordination, Denies vertigo and Denies weakness Psychiatric Psychiatric: Reports system reviewed and no additional complaints, except as documented, Denies anxiety, Denies confusion, Denies depression, Denies paranoia, Denies suicidal ideation and Denies tactile hallucinations Endocrine Endocrine: Reports system reviewed and no additional complaints, except as documented and Denies fatigue Hematologic/Lymphatic Hematologic/Lymphatic: Reports system reviewed and no additional complaints, except as documented and Denies lymphadenopathy Allergic/Immunologic Allergic/Immunologic: Reports system reviewed and no additional complaints, except as documented, Denies throat swelling, Denies urticaria and Denies wheezing ED Exam General Limitations: Present no limitations General appearance: Present alert and in no apparent distress Head Head exam: Present atraumatic Eye Eye exam: Present normal appearance, PERRL and EOMI ENT ENT exam: Present normal exam, normal oropharynx and mucous membranes moist Neck Neck exam: Present normal inspection, full ROM and trachea midline Chest Chest inspection: Present normal inspection and symmetric chest wall rise Respiratory Respiratory exam: Present normal lung sounds bilaterally; Absent respiratory distress, wheezes, stridor, accessory muscle use or prolonged expiratory phase Cardiovascular Cardiovascular exam: Present regular rate, normal rhythm, tachycardia, normal heart sounds, +S1 and +S2; Absent bradycardia, irregular rhythm, systolic murmur, diastolic murmur, rubs, gallop, clicks or JVD Abdominal Exam Abdominal exam: Present soft and normal bowel sounds Extremities Exam Extremities exam: Present normal inspection and full ROM Back Exam Back exam: Present normal inspection and full ROM Neurological Exam Neurological exam: Present alert, oriented X3 and CN II-XII intact Psychiatric Psychiatric exam: Present normal affect and normal mood Skin Skin exam: Present warm, dry, intact and normal color Course Quality Measures none Orders Category Date Time Status COVID-19 Screening Questionnaire NOW Care 07/03/25 13:15 Active Decision to Admit X1 Care 07/03/25 13:15 Active EKG (ED ONLY) *Do not use* NOW Care 07/03/25 05:43 Completed Orthostatic Vitals NOW Care 07/03/25 13:[address] head/brain wo con Stat Exams 07/03/25 09:39 Completed EKG (ED Only) Stat Exams 07/03/25 05:42 Ordered XR chest 2V Stat Exams 07/03/25 06:20 Completed B-Type Natriuretic Peptide Stat Lab 07/03/25 06:24 Completed CBC Stat Lab 07/03/25 06:24 Completed CK [Creatine Kinase] Stat Lab 07/03/25 06:24 Completed Comprehensive Metabolic Panel Stat Lab 07/03/25 06:24 Completed Drug Screen,Urine Stat Lab 07/03/25 07:10 Completed Free T4 (Free Thyroxine) Stat Lab 07/03/25 06:24 Completed TSH [Thyroid Stimulating Hormone] Stat Lab 07/03/25 06:24 Completed Troponin I Stat Lab 07/03/25 06:24 Completed Troponin I Stat Lab 07/03/25 08:29 Completed Urinalysis, C/S if Indicated Stat Lab 07/03/25 07:10 Completed Vital Signs Vital signs: Vital Signs Temperature 98.0 F 07/03/25 05:47 Pulse Rate 109 H 07/03/25 05:47 Respiratory Rate 20 07/03/25 05:47 Blood Pressure 158/83 H 07/03/25 05:47 Pulse Oximetry (%) 100 07/03/25 05:47 Oxygen Delivery Method Room Air 07/03/25 05:47 O2 saturation 100% within normal limits Chest Pain MDM Narrative MDM Narrative:: 49-year-old male with a history of anxiety and hypertension presents to the emergency room with a chief complaint of chest pain, palpitations, not feeling good x 1 week Patient is hemodynamically stable. Patient is tachycardic at 109 bpm. Physical examination shows clear bilateral lung sounds. The patient has a strong and regular rhythm S1 and S2 noted. There are no clicks no murmurs. EKG shows sinus rhythm at [address] deviation. Patient was seen here yesterday with the same complaint and was discharged. This is the patient's fourth visit in the last week. CBC CMP were negative for any acute findings. Troponin was negative. [place] was repeated 2 hours later and was also negative. The patient's heart score is low risk. Chest x-ray was completed and shows bronchitis. CT of the head and brain was negative for any acute findings. Thyroid function was within normal limits. The hospitalist team was consulted and Dr. Cleveland came down to see the patient. Hospitalist team will admit the patient for observation. Patient data External records reviewed:: [facility] previous records Clinical information provided by:: patient Social determinants that could affect healthcare access:: none Patient has the following chronic illnesses:: Hypertension How is presenting disease/condition affected by chronic disease/condition?: uneffected by Evaluation data The following diagnostics were reviewed and interpreted by me:: lab results and radiology exam(s) Lab and/or radiology exams considered but not ordered:: Labs and radiology exams considered and ordered Interpretation Summary: Chest [id number]: Normal heart size Lungs are clear. The osseous structures are intact. There is accentuation of the basilar bronchovascular markings Impression: Mild basilar bronchitis pattern Medications / Prescriptions Medications or Prescriptions considered but not ordered:: No medication given Medication administrations:: No medication given Consultations Consultation(s) initiated? (list below): No Diagnosis Chest Pain Differential Diagnosis: pneumothorax, stable angina, atypical chest pain, st elevation myocardial infarction, costochondritis, chest pain and other (Bronchitis) Most likely diagnosis given after review of the tests above:: Bronchitis Admission Indicated Admission indicated?: not indicated Admission Request Was there a request for admission?: Yes Admission Attestation Admission request attestation: Discussed case with [] from Hospitalist service regarding admission. Discussed patients ED course, exam findings, labs, and radiology results. The Hospitalist [agrees,declines] to accept the patient for admission. Disposition Plan Disposition Plan: Admit Discharge Plan Plan Patient Disposition: Admit Acute Care w/in Hospital Discharge Disposition comment: Stable Prescriptions/Referrals Prescriptions/Med Rec: No Action ondansetron 4 mg tablet,disintegrating 4 mg PO Q8H PRN (Reason: nausea and vomiting) Qty: 14 0RF hydroxyzine HCl 25 mg tablet 25 mg PO BID PRN (Reason: anxiety) Qty: 10 0RF hydrochlorothiazide 12.5 mg capsule 12.5 mg PO QAM Qty: 30 0RF Referrals: Ynes Flores MD [Primary Care Provider] - In 1 week Problem List Clinical Impression: Chest pain, Palpitations Patient/Caregiver Discharge Instructions Print Language: Occitan Stand Alone Forms: Sara Award Info., Work/School Release, Patient Portal Info Letter
[2025-07-03 09:10] LABS: Troponin I < 0.002 ng/mL (0.0-0.045)
[2025-07-03 09:18] LABS: Sperm,Urine Present
[2025-07-03 09:32] VITALS: BP 160/89; PULSE 67; RESP 18; TEMP 36.6; O2SAT 100
--- NOTE | 2025-07-03 09:39 | XR_ITS ---
Examination: CT brain head without contrast. 2-D sagittal coronal reconstructions Date and time of exam:July 03, 2025 1154 hours, comparison May 17, 2021 INDICATIONS: Dizziness head pain today CTDI: vol (mGy):48.3 DLP: (mGycm):913 Technique: Multiple CT axial sections of the brain have been obtained, 5 mm slice thickness. Contrast has not been administered. 2-D sagittal, coronal reconstructions have been obtained Low dose protocols were performed. One or more of the following dose reduction techniques were used; automated exposure control, adjustment of the mA and/or KV according to patient size, use of iterative reconstruction technique. Findings: No significant ventricular enlargement. Intra-axial or extra-axial hemorrhage density is not seen. No mass effect or midline shift Basal cisterns are not remarkable. Fourth ventricle is midline. Cranial vault intact. Impression: Negative for acute hemorrhage, mass effect or midline shift Advise clinical correlation follow-up accordingly
[2025-07-03 10:49] LABS: Creatine Kinase 88 U/L (34-171); Free T4 (Free Thyroxine) 1.29 ng/dL (0.89-1.76); Thyroid Stimulating Hormone 2.01 uIU/mL (0.55-4.78)
[2025-07-03 12:50] VITALS: BP 129/81; PULSE 68; RESP 14; TEMP 36.6; O2SAT 99
[2025-07-03 13:20] VITALS: BP 107/69; BP 133/82; BP 142/89; PULSE 70; PULSE 72; PULSE 83
[2025-07-03 14:53] LABS: Glucose Estimated Average 97 mg/dL (80-131); Hemoglobin A1C 5.0 % Hgb (4.8-6.0)
--- NOTE | 2025-07-03 15:09 | ESHP_ITS ---
Documentation for date of: 07/03/25 HPI History of Present Illness Chief complaint: Chest pain History of present illness: This patient is a 49-year-old male with past medical history of anxiety and hypertension who presented to [facility] ED on 07/03 due to chest pain/palpitations and general malaise. The patient was admitted under observation for management of intractable anxiety. The patient states that his symptoms started about 2 years ago, and has been on and off, but has become very frequent since about 8 days ago. No stressors could be identified per the patient. Because of his anxiety and chest pain that occur periodically, the patient has had significant difficulty with sleeping for the past 4 days. The patient has come repeatedly over the past week, marking this visit as the fourth visit to the ED this week. Each time, the patient presents with the same complaints of chest pain, anxiety, and sometimes shortness of breath. The patient has noted that the hydroxyzine and hydrochlorothiazide that the patient was prescribed from the previous ED visits seem to help his episodes, both in calming his anxiety and in resolving the chest pain, but the relief usually lasts only for a few hours. Additionally, over the past few days, medication is becoming less and less effective at controlling his anxiety and chest pain. At time of admission, the patient denies any shortness of breath, headache, fevers, chills, abdominal pain, dysuria, and constipation. Patient does endorse nonradiating chest pain located around the sternum of his chest. ED course: Initial vitals significant for blood pressure of 158/83 and heart rate 109. Initial labs were significant for calcium 10.2, AST 60, and ALT 53. Troponin negative. Repeat troponin 2 hours later also negative. Chest x-ray shows bronchitis. CT head negative for acute findings. TSH within normal limits. U tox negative for cocaine, however U tox on 06/28/25 was positive for cocaine Past Surgical History: Patient denies Current Medication(s): Hydrochlorothiazide and hydroxyzine Allergies (w/ Reactions): NKDA Family History: Noncontributory Alcohol Intake: 6-7 bottles of beer each day Tobacco/Vape Use: Patient denies Other Drug Use: Cocaine, unsure when he started but stated that he apparently stopped about 5 months ago Recent Travel History: Patient denies Review of Systems Review of Systems Systems Reviewed: All systems reviewed, normal except as documented Exam Vital Signs Temp Pulse Resp BP Pulse Ox O2 Del Method 97.8 F 70 14 142/89 H 99 Room Air 07/03/25 12:50 07/03/25 13:20 07/03/25 12:50 07/03/25 13:20 07/03/25 12:50 07/03/25 12:50 Narrative Exam Physical Exam: General: Alert, no acute distress. Skin: Warm, dry, intact. Head: Normocephalic, atraumatic. Eye: Normal conjunctiva, PERRL. Throat: Oral mucosa moist. No obvious lesions in oropharynx. Cardiovascular: Regular rate and rhythm, no murmur, +S1/S2. Respiratory: Lungs are clear to auscultation, respirations unlabored, no crackles, no wheezing. Gastrointestinal: Soft, nontender, non-distended. No guarding or rebound tenderness. Extremities: No edema, no cyanosis, no clubbing. 2+ radial pulse bilaterally, 2+ pedal pulse bilaterally. Neuro: No focal deficits observed. Conversant, moving all extremities. No overt cerebellar signs/incoordination. Psychiatric: Cooperative, appropriate affect. Results: Labs 07/04/25 05:01 07/04/25 05:01 Labs: Short CBC 07/03/25 Range/Units 06:24 WBC 4.4 (3.8-10.6) Thou/mm3 Hgb 14.8 (13.5-16.0) g/dL Hct 42.8 (41.0-53.0) % Plt Count 165 (140-440) Thou/mm3 BMP 07/03/25 06:24 Sodium 140 Potassium 3.8 Chloride 103 Carbon Dioxide 25.3 BUN 10 Creatinine 0.8 Glucose 137 H Calcium 10.2 Cardiac Enzymes 07/03/25 07/03/25 Range/Units 06:24 08:29 Total Creatine Kinase 88 (34-171) U/L Troponin I < 0.002 < 0.002 (0.0-0.045) ng/mL Liver Function 07/03/25 Range/Units 06:24 Total Bilirubin 1.1 (0.3-1.2) mg/dL AST 60 H (0-34) U/L ALT 53 H (10-49) U/L Alkaline Phosphatase 83 (46-116) U/L Albumin 4.6 (3.5-5.0) gm/dL Urine 07/03/25 Range/Units 07:10 Urine Color Yellow (Lt Yel-Yel) Urine Clarity Clear (Clear/Hazy) Urine pH 7.5 H (5.0-7.0) Ur Specific [place] 1.020 (1.001-1.035) Urine Protein Trace (Neg - Trace) Urine Glucose (UA) Negative (Negative) Quality Measures Quality Measures VTE prophylaxis Medications Home Medications and Allergies Allergies Allergy/AdvReac Type Severity Reaction Status Date / Time No Known Allergies Allergy Verified 07/03/25 05:41 Visit Medications Acetaminophen (Acetaminophen 325 Mg Tablet) 650 mg PO Q6H PRN PRN Reason: Fever >101.5 and pain 1-3 Stop: 08/02/25 13:44 Assessment & Plan Plan This patient is a 49-year-old male with past medical history of anxiety and hypertension who presented to [facility] ED on 07/03 due to chest pain/palpitations and general malaise. The patient was admitted under observation for management of intractable anxiety. # Chest pain, reproducible #Intractable anxiety #Panic attacks This patient has frequent episodes of anxiety, chest pain, and heart palpitations that started about 2 years ago, and the patient is unable to identify any particular causes. Patient is not aware of any triggers for these episodes. Episodes have been becoming more frequent over the past week, resulting in the patient seeking care at [facility] ED 4 times in the past week. The patient has been prescribed hydroxyzine and hydrochlorothiazide, both of which appear to provide the patient with some relief, but it is short-lived. Plan: Hydroxyzine 25 mg p.o. every 6 hour as needed for anxiety Melatonin 3 mg nightly to help the patient sleep Will continue to monitor, likely the patient will need outpatient follow-up Depending on status of the patient, will consider further medication such as buspirone or propranolol #Orthostatic hypotension Orthostatic hypotension vitals were taken in the ED. Patient was noted to have an over 20 SBP 10 DBP drop from sitting to standing. Plan: Will educate patient on safe rising techniques #Hypertension Patient is noted to have a history of hypertension. Patient has been prescribed hydrochlorothiazide for management. Plan: Will continue to monitor for now, will reconsider antihypertensive depending on status #Transaminitis, likely secondary to alcohol On admission, patient was noted to have DVT Prophylaxis: SCDs GI Prophylaxis: N/A Bowel: N/A Diet: Regular Vargas: N/A Lines: Peripheral IV Antibiotics: N/A Code Status: FULL Reason for Hospitalization: Intractable anxiety Other Barriers to Discharge: N/A Patient plan of care was discussed with attending physician Dr. Cristofer Mendez, PGY1 Attending Provider Attestation/Addendum I have discussed and was present for the essential components of the history, physical examination, diagnosis, and treatment plan with the resident. I agree with the patient's care as documented by the resident and amended herein by me. Allen Cleveland DO. Although this document has been carefully reviewed, there may still be some phonetic and other typographical errors. These errors are purely grammatical due to imperfections in the software program and should not be construed in any way to compromise the substance of the patient's medical care during this visit.
[2025-07-03 15:20] VITALS: BP 157/89; PULSE 72; RESP 14; TEMP 36.1; O2SAT 100
[2025-07-03 16:09] VITALS: BMI 27.3
--- NOTE | 2025-07-03 16:10 | PC.NURSE ---
PATIENT ALERT AND ORIENTED X4, C/O WEAKNESS, BS 103.
[2025-07-03 20:00] VITALS: BP 131/85; PULSE 68; RESP 18; TEMP 36.4; O2SAT 99
[2025-07-03] MEDS: RINGERS LACTATED 1000 ML 1,000 ML 999 ML IV (21:40)
[2025-07-03] MEDS: MELATONIN 3 MG TABLET PO (21:47)
[2025-07-04] VITALS: BP 122/71; PULSE 86; RESP 21; TEMP 36.1; O2SAT 96
[2025-07-04 04:00] VITALS: BP 132/74; PULSE 58; RESP 16; TEMP 36.4; O2SAT 98
[2025-07-04 05:48] LABS: Basophils # (Auto) 0.0 Thou/mm3 (0.0-0.2); Basophils % (Auto) 0 % (0-2.5); Eosinophils # (Auto) 0.0 Thou/mm3 (0.0-0.5); Eosinophils % (Auto) 0 % (0-10); Hematocrit 41.6 % (41.0-53.0); Hemoglobin 14.3 g/dL (13.5-16.0); Immature Granulocytes Auto 0.01 Thou/mm3 (0.00-0.00); Lymphocytes # (Auto) 1.4 Thou/mm3 (1.0-4.8); Lymphocytes % (Auto) 28 % (10-50); Mean Corpuscular HGB Conc 34.4 g/dl (31.0-37.0); Mean Corpuscular Hemoglobin 33.3 pg (25.0-35.0); Mean Corpuscular Volume 97 fL (80-100); Monocytes # (Auto) 0.5 Thou/mm3 (0.0-0.8); Monocytes % (Auto) 9 % (0-12); Neutrophils # (Auto) 3.1 Thou/mm3 (1.8-7.7); Neutrophils % (Auto) 62 % (37-80); Nucleated Red Blood Cell # 0.00 Thou/mm3 (0.00-0.00); Nucleated Red Blood Cell % 0 /100 WBC (0); Platelet Count 187 Thou/mm3 (140-440); RDW Standard Deviation 44.4 fL (35.1-43.9); Red Blood Count 4.29 Miln/mm3 (4.50-5.90); White Blood Count 5.1 Thou/mm3 (3.8-10.6)
[2025-07-04 06:14] LABS: Alanine Aminotransferase 54 U/L (10-49); Albumin, Serum 4.2 gm/dL (3.5-5.0); Albumin/Globulin Ratio 2.0 (1.2-2.2); Alkaline Phosphatase 68 U/L (46-116); Anion Gap 9 (7-16); Aspartate Amino Transferase 73 U/L (0-34); BUN/Creatinine Ratio 13 Ratio (12-20); Bilirubin,Direct 0.3 mg/dL (0.0-0.3); Bilirubin,Total 0.9 mg/dL (0.3-1.2); Blood Urea Nitrogen 9 mg/dL (9-23); Calcium 9.6 mg/dL (8.3-10.6); Calcium (Corrected) 9.6 mg/dL (8.5-10.1); Carbon Dioxide 26.4 mMol/L (20.0-31.0); Chloride 105 mMol/L (98-107); Creatinine (Component) 0.7 mg/dL (0.6-1.3); Estimated Creatinine Clearance 120.8 mL/min (>60); Globulin 2.1 gm/dL (2.3-3.5); Glucose 104 mg/dL (74-106); Magnesium 1.9 mg/dL (1.6-2.6); Osmolality,Calculated 278 (275-295); Potassium 4.3 mMol/L (3.4-5.1); Sodium 140 mMol/L (136-145); Total Protein 6.3 gm/dL (5.7-8.2); eGFR > 60 See Note
[2025-07-04 08:00] VITALS: BP 112/69; PULSE 60; RESP 16; TEMP 36.1; O2SAT 97
[2025-07-04 11:11] LABS: Hepatitis A Antibody IgM Non Reactive (Non React); Hepatitis B Core Antibody IgM Non Reactive (Non React); Hepatitis B Surface Antigen Non Reactive (Non React); Hepatitis C Antibody Non Reactive (Non React)
--- NOTE | 2025-07-04 12:45 | PD.RESDS ---
Planned Discharge Date 07/04/25 DS: Providers Provider Date of admission: 07/03/25 12:46 Primary care physician: Ynes Flores MD Admitting Provider: Roney Cleveland DO Attending Provider on Admission: Roney Cleveland DO Attending Provider on DC: Jerome Le MD Discharging Provider: Jerome Le MD DS: Diagnosis Problem List Completed Was Problem List Reviewed/Reconciled?: Yes Hospital Course Hospital Course Hospital course: 49-year-old male with past medical history of anxiety and hypertension who presented to [facility] ED on 07/03 due to chest pain/palpitations and general malaise. The patient was admitted under observation for management of intractable anxiety. At time of admission, the patient denied any shortness of breath, headache, fevers, chills, abdominal pain, dysuria, and constipation. Patient does endorse nonradiating chest pain located around the sternum of his chest. In the ED, patient was mildly hypertensive with tachycardia and labs were significant for hypercalcemia, mildly elevated liver enzymes but troponin was negative twice. Chest x-ray showed bronchitis pattern but no active disease, CT abdomen negative for any acute findings, TSH was within normal limits and U tox was negative for any cocaine however U tox on 06/28 was positive for cocaine. Overnight telemetry monitoring did not show any concerning findings and the patient remained asymptomatic during admission. Patient will be discharged with the following strict instructions. Please follow-up at the [facility] [address] [place], [place] [id number] Stop using illicit drugs and alcohol as you have signs of liver disease from alcohol-use Please stop taking hydrochlorothiazide and instead take Losartan 25mg by mouth daily for blood pressure Please take melatonin 5mg at night for sleep Continue all home medications as prescribed - stop taking ondansetron If your symptoms worsen or if you develop severe chest pain, shortness of breath, dizziness or bleeding - please come back to the ED immediately. Hospital Diagnosis: #Intractable anxiety #Panic attacks #Orthostatic hypotension #Hypertension #Alcohol induced liver injury #Metabolic associated steatotic liver disease #Cocaine use disorder Jerome Le DO PGY-2 Internal Medicine - GME Time Spent with Patient Time attestation: Total time spent providing and/or coordinating discharge services: Time spent: Greater than 30 minutes Exam Vital Signs Temp Pulse Resp BP Pulse Ox O2 Del Method 97 F 60 16 112/69 97 Room Air 07/04/25 08:00 07/04/25 08:00 07/04/25 08:00 07/04/25 08:00 07/04/25 08:00 07/04/25 08:00 Narrative Exam Physical Exam: General: Alert, no acute distress. Skin: Warm, dry, intact. Head: Normocephalic, atraumatic. Eye: Normal conjunctiva, PERRL. Throat: Oral mucosa moist. No obvious lesions in oropharynx. Cardiovascular: Regular rate and rhythm, no murmur, +S1/S2. Respiratory: Lungs are clear to auscultation, respirations unlabored, no crackles, no wheezing. Gastrointestinal: Soft, nontender, non-distended. No guarding or rebound tenderness. Extremities: No edema, no cyanosis, no clubbing. 2+ radial pulse bilaterally, 2+ pedal pulse bilaterally. Neuro: No focal deficits observed. Conversant, moving all extremities. No overt cerebellar signs/incoordination. Psychiatric: Cooperative, appropriate affect. Discharge Plan Plan Patient Disposition: HOME (Self Care) Care Plan Goals: Please follow-up at the [facility] [address] [place] [address] Stop using illicit drugs and alcohol as you have signs of liver disease from alcohol-use Please stop taking hydrochlorothiazide and instead take Losartan 25mg by mouth daily for blood pressure Please take melatonin 5mg at night for sleep Continue all home medications as prescribed - stop taking ondansetron If your symptoms worsen or if you develop severe chest pain, shortness of breath, dizziness or bleeding - please come back to the ED immediately. Prescriptions/Referrals Prescriptions/Med Rec: New losartan 25 mg tablet 25 mg PO QDAY 30 Days Qty: 30 0RF melatonin 5 mg capsule 5 mg PO QPM 30 Days Qty: 30 0RF Continued hydroxyzine HCl 25 mg tablet 25 mg PO BID PRN (Reason: anxiety) Qty: 10 0RF Discontinued ondansetron 4 mg tablet,disintegrating 4 mg PO Q8H PRN (Reason: nausea and vomiting) Qty: 14 0RF hydrochlorothiazide 12.5 mg capsule 12.5 mg PO QAM Qty: 30 0RF Referrals: Ynes Flores MD [Primary Care Provider] Patient/Caregiver Discharge Instructions Education Materials: Treatment for Vasovagal Syncope, Orthostatic Hypotension Print Language: Upper Sorbian Stand Alone Forms: Sara Award Info., Patient Portal Info Letter, Work/Release Restrictions Discharge Order Discharge Orders: Discharge (Routine); Ordered 07/04/25 Ordered By: Jerome Le Quality Discharge Quality Measures VTE prophylaxis MD Attestestation MD Attestation I have discussed and was present for the essential components of the discharge history, physical examination, diagnosis, and discharge treatment plan with the resident. I agree with the patient's discharge care as documented by the resident and amended herein by me. Allen Cleveland, . The patient understood all discharge instructions, all questions were answered satisfactorily. The patient was instructed to return to the Emergency Department is symptoms worsened or persisted. 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 Patient was stable, afebrile, tolerating p.o. intake and ambulatory at time of discharge home. Although this document has been carefully reviewed, there may still be some phonetic and other typographical errors. These errors are purely grammatical due to imperfections in the software program and should not be construed in any way to compromise the substance of the patient's medical care during this visit.
== END 2025-07-04 11:00 | disposition home or self-care (01) ==
LOC: SERX 13:19 → S3SX 07-04 08:19 → SERHOLD 07-04 10:40
PROVIDERS: Admitting Provider Student in an Organized Health Care Education/Training Program; Emergency Provider Nurse Practitioner Family; PCP Obstetrics & Gynecology; Referring Provider Student in an Organized Health Care Education/Training Program; Visit Provider Student in an Organized Health Care Education/Training Program
DX: F41.9 Anxiety disorder, unspecified (principal); I95.1 Orthostatic hypotension; I10 Essential (primary) hypertension; F41.0 Panic disorder [episodic paroxysmal anxiety]; F14.10 Cocaine abuse, uncomplicated; K70.9 Alcoholic liver disease, unspecified
CPT/HCPCS: 36415; 70450; 71046; 80053; 80074; 80076; 80307; 81001; 82550; 83036; 83735; 83880; 84439; 84443; 84484; 85025; 93005; 99284; A4649; G0378; J7120; A9270

== ENCOUNTER 2025-08-05 11:51 | Emergency (ER) | payer MEDICAID, SELFPAY ==
--- NOTE | 2025-08-05 12:02 | EKG_ITS ---
[facility] Test Date: 2025-08-05 Pat Name: MARIA DE JESUS LAWSON Department: Room: - Gender: Male Restorative Care Technician: : 1975 Requested By: Leydi Menard Order Number: [id number] Reading MD: Leydi Menard Measurements Intervals [facility] Rate: 78 P: 54 AL: 148 QRS: 44 QRSD: 92 T: 37 QT: 384 QTc: 438 Interpretive Statements SINUS RHYTHM VOLTAGE CRITERIA FOR LVH [MEETS CRITERIA IN ONE OF: R(aVL), S(V1), R(V5), R(V5/V6)+S(V1)] Compared to ECG 07/04/2025 12:58:22 Left ventricular hypertrophy now present /store/S0/[id number].pdf
[2025-08-05 12:12] VITALS: BP 155/86; PULSE 85; RESP 19; TEMP 36.5; O2SAT 99
[2025-08-05 12:19] VITALS: BMI 29.9
--- NOTE | 2025-08-05 12:33 | XR_ITS ---
EXAMINATION: PA chest single view TECHNIQUE: Upright PA chest single view Date and time: August 05, 2025, 12:43 p.m., comparison 07/03/2025 INDICATIONS: Chest pain today. FINDINGS: Normal heart size. Lungs are clear. Osseous structures are intact. IMPRESSION: No active disease
--- NOTE | 2025-08-05 12:40 | PD.EDRME ---
Rapid Medical Screening Exam E Arrival date/time: 08/05/25 11:51 This is a 49-year-old male that comes into the emergency room with complaints of chest pain after walking today. Patient states that this has happened before. Patient does also have a history of anxiety. Patient states he is also been having trouble sleeping. Patient states he is up all night and he is having trouble getting to sleep. Patient has a history of high blood pressure. And per patient he thinks his medications too strong because after he takes his blood pressure medication he feels like his blood pressure drops dramatically. I have greeted and performed a focused initial assessment of this patient. Initial appropriate labs ordered at this time. A comprehensive ED assessment and evaluation of the patient and analysis of all test and completion of medical decision making process will be conducted by additional ED provider. Chief Complaint: Shortness of Breath/Dyspnea Time Seen by Provider: 08/05/25 12:12 Vital signs: Vital Signs Temperature 97.7 F 08/05/25 12:12 Pulse Rate 85 08/05/25 12:12 Respiratory Rate 19 08/05/25 12:12 Blood Pressure 155/86 H 08/05/25 12:12 Pulse Oximetry (%) 99 08/05/25 12:12 Oxygen Delivery Method Room Air 08/05/25 12:12 Exam: Alert and oriented breathing even and unlabored cap refill less than 2 seconds, GCS 15 Clinical Impression: Anxiety, DE, URI
[2025-08-05 12:55] LABS: Basophils # (Auto) 0.0 Thou/mm3 (0.0-0.2); Basophils % (Auto) 0 % (0-2.5); Eosinophils # (Auto) 0.0 Thou/mm3 (0.0-0.5); Eosinophils % (Auto) 0 % (0-10); Hematocrit 44.3 % (41.0-53.0); Hemoglobin 15.2 g/dL (13.5-16.0); Immature Granulocytes Auto 0.02 Thou/mm3 (0.00-0.00); Lymphocytes # (Auto) 1.0 Thou/mm3 (1.0-4.8); Lymphocytes % (Auto) 13 % (10-50); Mean Corpuscular HGB Conc 34.3 g/dl (31.0-37.0); Mean Corpuscular Hemoglobin 32.3 pg (25.0-35.0); Mean Corpuscular Volume 94 fL (80-100); Monocytes # (Auto) 0.4 Thou/mm3 (0.0-0.8); Monocytes % (Auto) 5 % (0-12); Neutrophils # (Auto) 6.5 Thou/mm3 (1.8-7.7); Neutrophils % (Auto) 81 % (37-80); Nucleated Red Blood Cell # 0.00 Thou/mm3 (0.00-0.00); Nucleated Red Blood Cell % 0 /100 WBC (0); Platelet Count 201 Thou/mm3 (140-440); RDW Standard Deviation 41.1 fL (35.1-43.9); Red Blood Count 4.71 Miln/mm3 (4.50-5.90); White Blood Count 8.0 Thou/mm3 (3.8-10.6)
[2025-08-05 13:11] LABS: Alanine Aminotransferase 25 U/L (10-49); Albumin, Serum 5.2 gm/dL (3.5-5.0); Albumin/Globulin Ratio 2.6 (1.2-2.2); Alkaline Phosphatase 64 U/L (46-116); Anion Gap 11 (7-16); Aspartate Amino Transferase 31 U/L (0-34); B-Type Natriuretic Peptide 23 pg/mL (0-100); BUN/Creatinine Ratio 16 Ratio (12-20); Bilirubin,Total 1.7 mg/dL (0.3-1.2); Blood Urea Nitrogen 13 mg/dL (9-23); Calcium 9.5 mg/dL (8.3-10.6); Calcium (Corrected) 9.5 mg/dL (8.5-10.1); Carbon Dioxide 24.6 mMol/L (20.0-31.0); Chloride 105 mMol/L (98-107); Creatinine (Component) 0.8 mg/dL (0.6-1.3); Estimated Creatinine Clearance 107.4 mL/min (>60); Globulin 2.0 gm/dL (2.3-3.5); Glucose 108 mg/dL (74-106); Osmolality,Calculated 282 (275-295); Potassium 3.7 mMol/L (3.4-5.1); Sodium 141 mMol/L (136-145); Total Protein 7.2 gm/dL (5.7-8.2); Troponin I < 0.002 ng/mL (0.0-0.045); eGFR > 60 See Note
[2025-08-05 13:30] LABS: Collection Type, Urine Voided; Squamous Epithelial Cell,Urine 0 /hpf (0-5)
[2025-08-05 14:13] LABS: Bilirubin,Urine Negative (Negative); Blood,Urine Trace (Negative); Clarity,Urine Turbid (Clear/Hazy); Color,Urine Yellow (Lt Yel-Yel); Glucose, Urine Negative (Negative); Ketones,Urine Trace (Negative); Leukocyte Esterase,Urine Negative (Negative); Nitrite,Urine Negative (Negative); PH,Urine 5.5 (5.0-7.0); Protein,Urine 1+ (Neg - Trace); RBC,Urine 10 /hpf (0-3); Specific Gravity,Urine 1.030 (1.001-1.035); Urobilinogen,Urine Negative mg/dL (0.0-1.0); WBC,Urine 14 /hpf (0-5)
[2025-08-05 14:14] LABS: Culture Indicated,Urine Yes; Sperm,Urine Present
[2025-08-05 15:03] LABS: Amphetamine/Methamp Scrn,U Negative (Negative); Barbiturate Screen,Urine Negative (Negative); Benzodiazepines Screen,Urine Negative (Negative); Benzoylecgonine Screen, Ur Positive (Negative); Fentanyl Screen,Urine Negative (Negative); Opiate Screen,Urine Negative (Negative); THC Screen,Urine Negative (Negative)
--- NOTE | 2025-08-05 16:11 | EDNOTE_ITS ---
<Statement entered by Leydi Siddiqui MD - 08/12/25 14:18> As co-signing physician, I was present and available for consult prn. I concur with the plan and care as documented by the midlevel provider. ED General RME/HPI General Chief complaint: Shortness of Breath/Dyspnea Stated complaint: DIFF. BREATHING, BODY FEELS NUMB Time Seen by Provider: 08/05/25 12:12 Arrival date/time: 08/05/25 11:51 CC: Chest pain HPI chest pain upon exertion 3 episodes in the past 2 months last 1 was this morning at 9 AM, the patient states he walked approximately 7 miles had chest pain/chest pressure. Patient denies fever shortness of breath difficulty breathing. He is seeing his doctor tomorrow with a referral to a shank taper. Patient currently denies chest pressure nausea vomiting headache difficulty breathing RME / HPI RME / HPI narrative: 08/05/25 11:51 This is a 49-year-old male that comes into the emergency room with complaints of chest pain after walking today. Patient states that this has happened before. Patient does also have a history of anxiety. Patient states he is also been having trouble sleeping. Patient states he is up all night and he is having trouble getting to sleep. Patient has a history of high blood pressure. And per patient he thinks his medications too strong because after he takes his blood pressure medication he feels like his blood pressure drops dramatically. I have greeted and performed a focused initial assessment of this patient. Initial appropriate labs ordered at this time. A comprehensive ED assessment and evaluation of the patient and analysis of all test and completion of medical decision making process will be conducted by additional ED provider. Exam: Alert and oriented breathing even and unlabored cap refill less than 2 seconds, GCS 15 Impression: Anxiety, KS, URI Related Data Previous Rx's ?Medication ?Instructions ?Recorded hydroxyzine HCl 25 mg tablet 25 mg PO BID PRN anxiety #10 tabs 06/25/25 Allergies Allergy/AdvReac Type Severity Reaction Status Date / Time No Known Allergies Allergy Verified 08/05/25 11:55 Review of Systems Review of Systems Narrative Review of Systems: GEN: No fever, no chills, no weight loss EYES: No discharge, no visual changes, no pain HEENT: No ear pain, no congestion, no sore throat PULM: No shortness of breath, no cough, no congestion CV: + chest pain, no dyspnea on exertion, no palpitations GI: No nausea, no vomiting, no diarrhea, no pain, no constipation : No frequency, no urgency, no dysuria MUSC/SKEL: No joint pain, no back pain SKIN: No rash PSYCH: No hallucinations, no depression HEME/LYMPH: No easy bleeding or bruising tendencies NEURO: No weakness, no headache Past Medical History Past Medical History CARDIAC: Positive Hypertension; Negative Congestive Heart Failure RESPIRATORY: Negative Chronic Obstructive Pulmonary Disease (COPD) GENITOURINARY: Negative Renal Disease ENDOCRINE: Negative Diabetes Mellitus Type 1 or Diabetes Mellitus Type 2 PSYCHO/SOCIAL: Positive Anxiety Social History SMOKING STATUS: Never smoker SUBSTANCE USE: methamphetamine (2 days ago) ED Exam Narrative Physical exam: [General: Not in any acute distress Head normocephalic HEENT: Eyes pupils are PERRLA EOMs are intact all of the subsystems of HEENT are within acceptable limits Neck is supple nontender Chest equal chest rise nontender to palpation Respiratory: Clear to auscultation no wheezes crackles or rubs CV: Rate rhythm is regular no murmurs rubs or clicks Abdomen is distended secondary to body habitus soft nontender no masses positive bowel sounds all 4 quadrants Back: No CVA tenderness no spinous process tenderness from cervical spine thoracic and lumbar spine Skin: Intact no petechiae rash induration ulceration or crepitus Extremities: Moving all extremity against resistance cap refill less than 2 seconds neurosensory intact Neuro: Awake alert oriented x3 Glascow coma 15 no focal deficits] Course Quality Measures none Orders Category Date Time Status EKG (ED ONLY) *Do not use* NOW Care 08/05/25 12:02 Completed EKG (ED Only) Stat Exams 08/05/25 12:02 Draft XR chest 1V Stat Exams 08/05/25 12:33 Completed BNP [B-Type Natriuretic Peptide] Stat Lab 08/05/25 12:46 Completed CBC Stat Lab 08/05/25 12:46 Completed Comprehensive Metabolic Panel Stat Lab 08/05/25 12:46 Completed Drug Screen,Urine Stat Lab 08/05/25 13:07 Completed Troponin I Stat Lab 08/05/25 12:46 Completed Urinalysis, C/S if Indicated Stat Lab 08/05/25 13:07 Completed Urine Culture Stat Lab 08/05/25 13:07 Received Vital Signs Vital signs: Vital Signs Temperature 97.7 F 08/05/25 12:12 Pulse Rate 85 08/05/25 12:12 Respiratory Rate 19 08/05/25 12:12 Blood Pressure 155/86 H 08/05/25 12:12 Pulse Oximetry (%) 99 08/05/25 12:12 Oxygen Delivery Method Room Air 08/05/25 12:12 Discharge Plan Plan Patient Disposition: HOME (Self Care) Patient condition on transfer: Stable Prescriptions/Referrals Prescriptions/Med Rec: No Action hydroxyzine HCl 25 mg tablet 25 mg PO BID PRN (Reason: anxiety) Qty: 10 0RF Referrals: Devin Smith MD [Primary Care Provider, Family Practice] - In 1 week Problem List Clinical Impression: Chest pain, Cocaine abuse Patient/Caregiver Discharge Instructions Education Materials: Cocaine: Understanding Its Effects, ED Chest Pain, Uncertain Cause Additional Instructions: Follow-up with your doctor as stated, get a referral to shank taper, stop using cocaine. Print Language: Frisian Stand Alone Forms: Syncurity Info., Work/School Release, Patient Portal Info Letter PA/SKIP PITMAN Supervising Physician PA/SKIP PITMAN Supervising Physician: Omar Starr ENP MDM Clinical Information Provided by: patient Medical Records reviewed [facility] Meds/Rx considered, not ordered None Labs/Rad/Tests considered, not ordered None Chronic Illness/Social Conditions which may negatively complicate care or outcome(s)-explain: None or not applicable EKG Interpretation EKG #1: EKG Interpretation: EKG performed at 1215 shows a ventricular rate of 78 AL interval 148 QRS of 92 QTc of 417 this is sinus rhythm Labs Labs: interpreted by de Lab(s) Interpretation(s): CBC shows no acute leukocytosis anemia thrombocytopenia CMP shows no excess electrolyte imbalances renal impairment transaminitis, T. bili is elevated 1.7 Urine is turbid, 1+ protein 14 RBCs no bacteria UDS is positive for cocaine. Imaging Imaging interpretation: interpreted by de Imaging Interpretation(s): Negative for any acute finding Medication Administration(s) none Diagnosis Differential Diagnosis ED Complaint MDM: ACS KS pneumonia
[2025-08-05 16:24] VITALS: BP 144/83; PULSE 72; RESP 19; TEMP 36.7; O2SAT 99
== END 2025-08-05 16:46 | disposition home or self-care (01) ==
PROVIDERS: Nurse Practitioner Family; Emergency Provider Emergency Medicine; PCP Family Medicine
DX: R07.9 Chest pain, unspecified (principal); F14.10 Cocaine abuse, uncomplicated; F41.9 Anxiety disorder, unspecified; J06.9 Acute upper respiratory infection, unspecified
CPT/HCPCS: 36415; 71045; 80053; 80307; 81001; 83880; 84484; 85025; 87086; 93005; 99282

== ENCOUNTER 2025-08-06 17:32 | Emergency (ER) | payer MEDICAID, SELFPAY ==
[2025-08-06 17:38] VITALS: BP 150/74; PULSE 78; RESP 18; TEMP 36.8; O2SAT 100; O2SAT 99; BMI 29.9
--- NOTE | 2025-08-06 18:57 | EDNOTE_ITS ---
ED Anxiety RME/HPI General Chief Complaint: Anxiety Stated Complaint: ANXIETY AFTER FLU SHOT TODAY Time Seen by Provider: 08/06/25 18:22 Arrival date/time: 08/06/25 17:32 49-year-old male with a history of anxiety disorder reports with complaints of an anxiety attack. Patient states he received a full vaccination and after the shot he began to feel dizzy his chest started to hurt he he felt short of breath his brain felt as if it was spinning around in his head and he has not been able to get comfortable since the shot. He denies chest pain nausea or vomiting weakness fatigue hearing or vision changes. Patient's is concerned for severe anxiety Limitations: no limitations Related Data Previous Rx's ?Medication ?Instructions ?Recorded hydroxyzine HCl 25 mg tablet 25 mg PO BID PRN anxiety #10 tabs 06/25/25 hydroxyzine HCl 25 mg tablet 25 mg PO BID PRN anxiety #20 tabs 08/06/25 Allergies Allergy/AdvReac Type Severity Reaction Status Date / Time No Known Allergies Allergy Verified 08/06/25 18:04 Review of Systems Constitutional Constitutional: Denies daytime sleepiness, Denies difficulty sleeping and Denies fatigue ENT Ears, Nose, Mouth, and Throat: Reports dizziness, Denies throat swelling and Denies tongue swelling Cardiovascular Cardiovascular: Reports chest pain, Reports dyspnea and Denies syncope Respiratory Respiratory: Denies cough and Reports dyspnea Gastrointestinal Gastrointestinal: Denies abdominal pain, Denies nausea and Denies vomiting Musculoskeletal Musculoskeletal: Denies arthralgias and Denies joint swelling Integumentary/Breasts Skin/Breast: Denies erythema and Denies new lesions Neurologic Neurologic: Denies confusion, Reports dizziness, Denies memory loss, Denies seizure-like activity and Denies syncope Psychiatric Psychiatric: Reports anxiety, Denies confusion, Denies depression and Denies memory loss Endocrine Endocrine: Denies fatigue and Denies flushing Allergic/Immunologic Allergic/Immunologic: Denies throat swelling and Denies tongue swelling Past Medical History Past Medical History CARDIAC: Positive Hypertension; Negative Congestive Heart Failure RESPIRATORY: Negative Chronic Obstructive Pulmonary Disease (COPD) GENITOURINARY: Negative Renal Disease ENDOCRINE: Negative Diabetes Mellitus Type 1 or Diabetes Mellitus Type 2 PSYCHO/SOCIAL: Positive Anxiety Social History SMOKING STATUS: Never smoker SUBSTANCE USE: methamphetamine (2 days ago) ED Exam General Limitations: Present no limitations General appearance: Present alert and in no apparent distress Head Head exam: Present atraumatic Eye Eye exam: Present normal appearance, PERRL and EOMI ENT ENT exam: Present normal exam, normal oropharynx and mucous membranes moist Neck Neck exam: Present normal inspection, full ROM and trachea midline Chest Chest inspection: Present normal inspection and symmetric chest wall rise Respiratory Respiratory exam: Present normal lung sounds bilaterally Cardiovascular Cardiovascular exam: Present regular rate, normal rhythm and normal heart sounds Abdominal Exam Abdominal exam: Present soft and normal bowel sounds Extremities Exam Extremities exam: Present normal inspection and full ROM Back Exam Back exam: Present normal inspection and full ROM Neurological Exam Neurological exam: Present alert, oriented X3 and CN II-XII intact Psychiatric Psychiatric exam: Present normal affect and normal mood Skin Skin exam: Present warm, dry, intact and normal color Course Course Course Narrative: 49-year-old male with a history of anxiety presents with complaints of an anxiety attack. After receiving a dose of lorazepam, the patient reports feeling much calmer and reassessment shows significant improvement. He denies shortness of breath, chest pain, nausea, or vomiting. His vital signs are stable. The patient was educated on the importance of following up with his primary care provider and potentially obtaining a referral for psychological support to manage his anxiety. He verbalized understanding and is being discharged, as he denies any suicidal or homicidal ideations. Quality Measures none Orders Category Date Time Status LORazepam [Ativan] Med 08/06/25 18:57 Once 1 mg PO X1 ONE Vital Signs Vital signs: Vital Signs Temperature 98.3 F 08/06/25 17:38 Pulse Rate 78 08/06/25 17:38 Respiratory Rate 18 08/06/25 17:38 Blood Pressure 150/74 H 08/06/25 17:38 Pulse Oximetry (%) 100 08/06/25 17:38 Oxygen Delivery Method Room Air 08/06/25 17:38 Anxiety Patient data External records reviewed:: None Clinical information provided by:: patient Social determinants that could affect healthcare access:: none Patient has the following chronic illnesses:: anxiety How is presenting disease/condition affected by chronic disease/condition?: caused by Evaluation data The following diagnostics were reviewed and interpreted by me:: other (specify) (none) Lab and/or radiology exams considered but not ordered:: none Interpretation Summary: n/a Medications / Prescriptions Medications or Prescriptions considered but not ordered:: none Medication administrations:: ativan 1 ng PO Consultations Consultation(s) initiated? (list below): No Diagnosis Most likely diagnosis given after review of the tests above:: Anxiety disorder Admission Indicated Admission indicated?: not indicated Admission Request Was there a request for admission?: No Disposition Plan Disposition Plan: Discharge Discharge Attestation Discharge Attestation: The patient and all family members were given an opportunity to ask questions and understood the discharge instructions. Discharge instructions specifically effects, indications for sooner follow up or return to the emergency department, and the expected course of current diagnosis. Patient condition: Stable Discharge Plan Plan Patient Disposition: HOME (Self Care) Prescriptions/Referrals Prescriptions/Med Rec: New hydroxyzine HCl 25 mg tablet 25 mg PO BID PRN (Reason: anxiety) Qty: 20 0RF No Action hydroxyzine HCl 25 mg tablet 25 mg PO BID PRN (Reason: anxiety) Qty: 10 0RF Referrals: Devin Smith MD [Primary Care Provider, [facility]] - In 1 week Problem List Clinical Impression: Acute anxiety Patient/Caregiver Discharge Instructions Discharge Activity: activity as tolerated Education Materials: ED Anxiety Reaction Additional Instructions: Follow-up with your primary care provider for a referral to psychology or psychiatrist Print Language: Mohawk Stand Alone Forms: Sara Award Info., Patient Portal Info Letter
== END 2025-08-06 22:27 | disposition home or self-care (01) ==
PROVIDERS: Emergency Provider Emergency Medicine; PCP Family Medicine
DX: F41.0 Panic disorder [episodic paroxysmal anxiety] (principal)
CPT/HCPCS: 99281; A9270